=== PATIENT | female | born 2005 | race Caucasian/White ===

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

== ENCOUNTER 2024-11-04 13:55 | Emergency (ER) | payer BC ==
[2024-11-04 14:10] VITALS: TEMP 98.6; BMI 44.2
[2024-11-04 15:44] LABS: PH,URINE 7.5 (5.0-8.0); URINE APPEARANCE CLOUDY; URINE BILIRUBIN NEGATIVE (NEGATIVE); URINE COLOR YELLOW; URINE GLUCOSE (UA) NEGATIVE (NEGATIVE); URINE KETONE NEGATIVE (NEGATIVE); URINE LEUK ESTERASE NEGATIVE (NEGATIVE); URINE NITRITE NEGATIVE (NEGATIVE); URINE PROTEIN NEGATIVE (NEGATIVE)
[2024-11-04 15:50] LABS: BASO % 0.4 % (0-2.0); EOS % 1.5 % (0-4.5); HEMATOCRIT 38.4 % (32.4-45.2); HEMOGLOBIN 12.8 GM/dL (10.7-15.3); LYMPH % 20.1 % (8-40); MCH 28.9 pg (25.7-33.7); MCHC 33.3 g/dl (32.0-36.0); MEAN CELL VOLUME 86.9 fl (80-96); MEAN PLT VOLUME 8.4 fl (7.5-11.1); MONO % 6.1 % (3.8-10.2); NEUT % 71.9 % (42.8-82.8); PLATELET COUNT 375 10^3/uL (134-434); RBC 4.42 M/mm3 (3.60-5.2); RDW 14.1 % (11.6-15.6); WHITE BLOOD COUNT 10.3 K/mm3 (4.0-10.0)
[2024-11-04 16:13] LABS: CHLORIDE 107 mmol/L (98-107); SODIUM 137 mmol/L (136-145)
[2024-11-04 16:15] LABS: ALBUMIN 3.6 g/dl (3.4-5.0); ANION GAP 7 mmol/L (4-13); CALCIUM 9.1 mg/dL (8.5-10.1); CO2 23 mmol/L (21-32); GLUCOSE,RANDOM 87 mg/dL (74-106); POTASSIUM 6.8 mmol/L (3.5-5.1)
[2024-11-04 16:18] LABS: CREATININE 0.8 mg/dL (0.55-1.3); SGOT/AST 65 U/L (15-37); SGPT/ALT 36 U/L (13-61)
[2024-11-04 16:20] LABS: BILIRUBIN,TOTAL 0.5 mg/dL (0.2-1); TOT PROT 7.2 g/dl (6.4-8.2)
[2024-11-04 16:21] LABS: ALK PHOS 97 U/L (45-117)
[2024-11-04 17:06] LABS: POTASSIUM 4.9 mmol/L (3.5-5.1)
[2024-11-04 17:08] LABS: ALBUMIN 3.7 g/dl (3.4-5.0); BLOOD UREA NITROGEN 11.4 mg/dL (7-18); CALCIUM 9.3 mg/dL (8.5-10.1)
[2024-11-04 17:12] LABS: CREATININE 0.7 mg/dL (0.55-1.3)
[2024-11-04 17:13] LABS: BILIRUBIN,TOTAL 0.5 mg/dL (0.2-1); TOT PROT 6.8 g/dl (6.4-8.2)
[2024-11-04 19:38] VITALS: BP 126/70; PULSE 81; RESP 16
== END 2024-11-04 21:19 | disposition home or self-care (01) ==
LOC: JER 13:55
DX: O20.0 Threatened abortion (principal); Z3A.01 Less than 8 weeks gestation of pregnancy
CPT/HCPCS: 36415; 76817-TC; 80053; 81003; 84702; 85025; 86850; 86900; 86901; 87086; 87186; 99284-25

== ENCOUNTER 2025-02-27 18:57 | Emergency (ER) | payer BC ==
[2025-02-27 19:03] VITALS: BP 121/79; PULSE 97; RESP 18; TEMP 98.8; BMI 45.1
[2025-02-27] MEDS ORDERED: FAMOTIDINE 20 MG TABLET ONE (19:52)
[2025-02-27] MEDS: FAMOTIDINE 20 MG TABLET PO ONE (19:54)
[2025-02-27 19:55] LABS: EPI CELLS 16 /uL (0-25.1); HYALINE CASTS 0 /uL (0-3.1); PH,URINE 6.5 (5.0-8.0); URINE APPEARANCE CLEAR; URINE BACTERIA >9,000 /uL (0-1359); URINE BILIRUBIN NEGATIVE (NEGATIVE); URINE COLOR YELLOW; URINE GLUCOSE (UA) NEGATIVE (NEGATIVE); URINE KETONE NEGATIVE (NEGATIVE); URINE LEUK ESTERASE NEGATIVE (NEGATIVE); URINE NITRITE NEGATIVE (NEGATIVE); URINE PROTEIN NEGATIVE (NEGATIVE); URINE RBC 7 /uL (0-23.9); URINE WBC 13 /uL (0-25.8)
[2025-02-27 19:56] LABS: HCG,QUALITATIVE URINE Negative
[2025-02-27 20:48] LABS: ABSOLUTE IMMATURE GRANULOCYTES 0.02 x10^3/uL (0.0-0.031); BASOPHILS # 0.04 x10^3/uL (0.01-0.08); EOSINOPHIL % 1.9 % (0.7-5.8); EOSINOPHILS # 0.19 x10^3/uL (0.04-0.36); HEMATOCRIT 40.2 % (34.1-44.9); HEMOGLOBIN 13.1 g/dL (11.2-15.7); MCHC 32.6 g/dl (32.2-35.5); MEAN CELL VOLUME 89.9 fl (79.4-94.8); MEAN PLT VOLUME 10.5 fl (9.4-12.3); MONOCYTE # 0.78 x10^3/uL (0.24-0.86); MONOCYTE % 7.8 % (4.7-12.5); PLATELET COUNT 382 x10^3/uL (182-369); RDW 12.6 % (12.0-16.2)
[2025-02-27 21:15] LABS: POTASSIUM 4.6 mmol/L (3.5-5.1)
[2025-02-27 21:16] LABS: CALCIUM 9.6 mg/dL (8.5-10.1)
[2025-02-27 21:18] LABS: ALBUMIN 3.7 g/dl (3.4-5.0); BLOOD UREA NITROGEN 15.5 mg/dL (7-18)
[2025-02-27 21:20] LABS: CREATININE 0.7 mg/dL (0.55-1.3)
[2025-02-27 21:21] LABS: BILIRUBIN,TOTAL 0.4 mg/dL (0.2-1); TOT PROT 6.8 g/dl (6.4-8.2)
== END 2025-02-27 23:24 | disposition home or self-care (01) ==
LOC: JER 18:57
DX: O26.891 Other specified pregnancy related conditions, first trimester (principal); R10.13 Epigastric pain; R10.30 Lower abdominal pain, unspecified; R11.0 Nausea; O99.891 Other specified diseases and conditions complicating pregnancy; R19.5 Other fecal abnormalities; M54.9 Dorsalgia, unspecified; Z3A.00 Weeks of gestation of pregnancy not specified
CPT/HCPCS: 0241U-QW; 36415; 76817-TC; 80053; 81003; 83690; 84702; 84703; 85025; 87086; 87186; 99284-25